=== PATIENT | female | born 1945 | race Caucasian/White ===

== ENCOUNTER 2024-03-21 11:47 | Day surgery (SDC) | payer OTHER ==
[2024-03-13 11:43] LABS: BASOPHILS # (AUTO) 0.1 X10'3 (0-0.2); BASOPHILS % (AUTO) 1.4 % (0-1); EOSINOPHILS # (AUTO) 0.1 X10'3 (0-0.9); LYMPHOCYTES # (AUTO) 1.6 X10'3 (1.1-4.8); LYMPHOCYTES % (AUTO) 32.3 % (21-51); MEAN CORPUSCULAR HEMOGLOBIN 29.9 PG (27.0-31.0); MEAN CORPUSCULAR HGB CONC 33.4 g/dL (33.0-36.5); MEAN CORPUSCULAR VOLUME 89.7 FL (78-98); MEAN PLATELET VOLUME 6.9 FL (7.4-10.4); MONOCYTES # (AUTO) 0.5 X10'3 (0-0.9); NEUTROPHILS # (AUTO) 2.8 X10'3 (1.8-7.7); NEUTROPHILS % (AUTO) 54.3 % (42-75); PRE OP HEMATOCRIT 39.6 % (35.0-45.0); PRE OP HEMOGLOBIN 13.2 g/dL (12.0-16.0); PRE OP PLATELET COUNT 376 X10'3 (140-440); PRE OP WHITE BLOOD COUNT 5.1 10'3 (4.8-10.8); RED BLOOD COUNT 4.41 X10'6 (4.20-5.60); RED CELL DISTRIBUTION WIDTH 14.3 % (11.5-14.5)
[2024-03-13 11:56] LABS: ALBUMIN 3.7 G/DL (3.4-5.0); ALBUMIN/GLOBULIN RATIO 0.8 (1.1-1.5); ALKALINE PHOSPHATASE 455 IU/L (46-116); BLOOD UREA NITROGEN 16 MG/DL (7-18); BUN/CREATININE RATIO 21.1 (10.0-20.0); CALCIUM 9.2 MG/DL (8.5-10.1); CHLORIDE 103 MMOL/L (99-107); CREATININE 0.76 MG/DL (0.40-0.90); PRE OP ANION GAP 7 (8-16); PRE OP AST 92 U/L (10-37); PRE OP BILIRUB, TOTAL 0.9 MG/DL (0.0-1.0); PRE OP GLUCOSE 95 MG/DL (70-104); PRE OP POTASSIUM 4.2 MMOL/L (3.4-5.1); PRE OP SODIUM 140 MMOL/L (135-145); TOTAL PROTEIN 8.2 G/DL (6.4-8.2); eGFR 74 ML/MIN
[2024-03-13 11:58] LABS: PRE OP ALT 135 U/L (30-65)
[2024-03-21] VITALS (16 sets, daily range): BP systolic 129–186; BP diastolic 69–101; PULSE 65–103; RESP 14–23; TEMP 99.1; O2SAT 65–99
[~2024-03-21] VITALS: Ht 152.4 cm; Wt 67.5 kg
[~2024-03-21 11:47] MED LIST: ATOR10TA70 PO; OMEP20CA16 PO; cefazolin 2gm/D5W 100mL 100 ML IV ONE
[2024-03-21] MEDS: famotidine 20mg tablet PO ONE (12:41)
[2024-03-21] MEDS: INDOCYANINE GREEN 25 MG/10 ML VIAL IV ONE (12:43)
[2024-03-21] MEDS: ringers solution, lacted 1,000 ML IV SCH ×2 (12:43→16:57)
[2024-03-21] MEDS ORDERED: BUPIVAcaine/PF 2.5mg/ml (0.25%) 10ml vial ONE (15:23)
[2024-03-21] MEDS ORDERED: LIDOcaine 1% 30ml preserv. free vial ONE (15:23)
[2024-03-21] MEDS ORDERED: fentaNYL/PF 50MCG/1 ML 2ML syringe IV PRN (15:35)
[2024-03-21] MEDS ORDERED: ondansetron/PF 4mg/2ml inj IV PRN (15:35)
[2024-03-21] MEDS ORDERED: meperidine/PF 25mg/ml syringe IV PRN (15:35)
[2024-03-21] MEDS ORDERED: proCHLORperazine 10 MG/2 ml inj IV PRN (15:35)
[2024-03-21] MEDS ORDERED: HYDROmorphone/PF 0.2 MG/ML SYRINGE IV PRN (15:35)
[2024-03-21] MEDS ORDERED: sevoflurane 250ml liquid IH ONE (15:40)
[2024-03-21] MEDS ORDERED: propofol inj 20 ML IV ONE (15:55)
[2024-03-21] MEDS ORDERED: LIDOcaine 1%/PF 5ML 10 MG/ML VIAL ONE (15:55)
[2024-03-21] MEDS ORDERED: ondansetron/PF 4mg/2ml inj ONE (15:55)
[2024-03-21] MEDS ORDERED: rocuronium 10mg/ml inj IV ONE (15:56)
[2024-03-21] MEDS: LIDOcaine 1% 30ml preserv. free vial IJ ONE (16:21)
[2024-03-21] MEDS ORDERED: meperidine/PF 25mg/ml syringe ONE (16:24)
[2024-03-21] MEDS ORDERED: sugammadex 200mg/2ml injection IV ONE (16:28)
[2024-03-21] MEDS: acetaminophen 1,000mg/100ml IV 100 ML IV ONE (16:57)
[2024-03-21] MEDS: labetalol 20mg/4ml (5mg/ml) syringe IV PRN (17:08)
[2024-03-21] MEDS ORDERED: oxyCODONE/APAP 5-325mg tablet PO PRN (17:10)
[2024-03-21] MEDS: hydrALAZINE 20mg/ml inj. IV PRN (18:10)
== END 2024-03-21 18:32 | disposition home or self-care (01) ==
LOC: PAS 11:47
PROVIDERS: ATTEND Surgery
DX: K80.20 Calculus of gallbladder without cholecystitis without obstruction (principal); E78.5 Hyperlipidemia, unspecified; K21.9 Gastro-esophageal reflux disease without esophagitis; Z79.899 Other long term (current) drug therapy; Z98.890 Other specified postprocedural states
CPT/HCPCS: 36415; 47563; 80053; 82948; 85025; 93005; J0131; J0360; J0690; J2175; J2405; J2704; J3490; J7030; J7120; Z7506; Z7508; Z7512; A4215; A4618; A7000

== ENCOUNTER 2024-11-29 07:36 | Outpatient (CLI) | payer OTHER ==
[~2024-11-29 07:36] MED LIST changes: -cefazolin 2gm/D5W 100mL 100 ML IV ONE
== END 2024-11-29 23:59 | disposition home or self-care (01) ==
LOC: RAD 07:36
PROVIDERS: ATTEND Nurse Practitioner
DX: R05.3 Chronic cough (principal)
CPT/HCPCS: 71046